=== PATIENT | female | born 1990 | race Caucasian/White ===

== ENCOUNTER 2023-02-26 08:15 | Emergency (ER) | payer OTHER ==
[2023-02-26] MEDS ORDERED: TETANUS/DIPHTHERIA/PERTUSSIS 0.5 ML SYRINGE IM ONE (08:27)
[2023-02-26] MEDS ORDERED: LIDOCAINE-EPINEPH-TETRACAINE 3 ML SYRINGE TOP STA (08:27)
--- NOTE | 2023-02-26 08:28 | ED Physician Documentation ---
PD HPI UPPER EXT INJURY - Stated complaint Stated Complaint: FALL HAND/KNEE - Chief complaint Chief Complaint: Trauma Ext - History obtained from History obtained from: Patient (Otherwise healthy 32-year-old was running this morning and slipped and fell on the [place] and has deep dirty abrasions to the right hand and left knee. Tetanus is not up-to-date. No other injuries.) PD PAST MEDICAL HISTORY - Allergies Allergies/Adverse Reactions: Allergies Allergy/AdvReac Type Severity Reaction Status Date / Time shellfish derived Allergy Hives Verified 02/26/23 08:23 PD ED PE NORMAL - Vitals Vital signs reviewed: Yes - General General: Alert and oriented X 3, No acute distress - Extremities Extremities: No deformity, No tenderness to palpate, Normal ROM s pain, Other (Scrape on the ulnar side of the palm of the right hand that is moderately deep with retained material. Another deep scrape to the anterolateral left knee similarly with debris in it.) - Neuro Neuro: Alert and oriented X 3, Normal speech Results - Vitals Vitals: Vital Signs - 24 hr 02/26/23 08:20 Temperature 36.8 C Heart Rate 68 Respiratory 16 Rate Blood Pressure 128/76 O2 Saturation 99 Oxygen O2 Source Room air PD Medical Decision Making - ED course ED course: Topical lidocaine was placed on both wounds, the right hand and left knee, then both were thoroughly irrigated and debrided of foreign material. Departure - Departure Disposition: 01 Home, Self Care Clinical Impression: Abrasion, left knee, initial encounter Abrasion of right hand Qualifiers: Encounter type: initial encounter Qualified Code(s): S60.511A - Abrasion of right hand, initial encounter Condition: Good Record reviewed to determine appropriate education?: Yes Instructions: ED Abrasion Comments: Come back for any signs of infection which would include: Redness, swelling, drainage, increased pain, or fevers. You can wash it soap and water. Keep it covered and moist with bacitracin ointment which is available over the counter; avoid neosporin.
[2023-02-26] MEDS ORDERED: LIDOCAINE OINTMENT 5% 35.44 GM TUBE TOP STA (08:33)
[2023-02-26 09:54] VITALS: BP 122/70
== END 2023-02-26 09:53 | disposition home or self-care (01) ==
LOC: ED 08:15
DX: S60.511A Abrasion of right hand, initial encounter (principal); S80.212A Abrasion, left knee, initial encounter; W01.0XXA Fall on same level from slipping, tripping and stumbling without subsequent striking against object, initial encounter; Y93.02 Activity, running; Y92.838 Other recreation area as the place of occurrence of the external cause
CPT/HCPCS: 90471; 90715; 99282; 99283; A9270